=== PATIENT | male | born 1965 | race Two or more races ===

== ENCOUNTER 2022-03-16 22:30 | Emergency (ER) | payer SELFPAY ==
[~2022-03-16] VITALS: Ht 170.2 cm; Wt 82.0 kg
[2022-03-16 22:46] VITALS: BP 137/74
[2022-03-16 23:43] LABS: Basophils # (auto) 0.2 10 ^3/uL (0-0.2); Basophils % (auto) 2.2 % (0.0-2.0); Eosinophils # (auto) 0.1 10 ^3/uL (0-0.8); Hematocrit 38.1 % (41.0-53.0); Hemoglobin 13.2 g/dL (13.5-17.5); Lymphocytes # (auto) 1.8 10 ^3/uL (0.4-5.4); Lymphocytes % (auto) 16.9 % (10.0-50.0); Mean Corpuscular Hemoglobin 29.8 pg (28.0-32.0); Mean Corpuscular Hgb Conc. 34.5 g/dL (32.0-36.0); Mean Corpuscular Volume 86.3 fL (80.0-100.0); Monocytes # (auto) 0.3 10 ^3/uL (0-1.3); Monocytes % (auto) 3.3 % (0.0-12.0); Neutrophils # (auto) 7.9 10 ^3/uL (1.6-8.6); Neutrophils % (auto) 76.6 % (37.0-80.0); Nucleated Red Blood Cells % 0.1 %; Red Blood Cells 4.42 10^6/uL (4.5-5.90); Red Cell Distribution Width 13.6 % (11.8-14.3); White Blood Cell 10.3 10^3/uL (4.4-10.8)
[2022-03-16 23:47] LABS: Albumin 3.7 g/dL (3.4-5.0); Calcium 8.5 mg/dL (8.5-10.1); Potassium 4.1 mmol/L (3.5-5.1)
[2022-03-16 23:53] LABS: Salicylate < 1.7 mg/dL (2.8-20.0)
[2022-03-17 00:02] LABS: Acetaminophen < 2.0 ug/mL (10-30)
[2022-03-17 00:03] LABS: Bilirubin, Total 0.3 mg/dL (0.2-1.0); Total Protein 6.9 g/dL (6.4-8.2)
[2022-03-17 00:57] LABS: BUN/Creatinine Ratio 28.1
== END 2022-03-17 04:00 | disposition left against medical advice (07) ==
LOC: EDBD 22:30 → EDSEX 22:30 → ER 22:30
DX: F10.90 Alcohol use, unspecified, uncomplicated (principal); R11.10 Vomiting, unspecified; Z53.21 Procedure and treatment not carried out due to patient leaving prior to being seen by health care provider; Y90.9 Presence of alcohol in blood, level not specified
CPT/HCPCS: 36415; 80053; 80320; 80329; 82962; 85025